=== PATIENT | male | born 1980 | race Caucasian/White ===

== ENCOUNTER 2021-09-25 14:47 | Emergency (ER) | payer OTHER ==
[2021-09-25] MEDS ORDERED: NORFLEX 100 MG100 MG PO (17:26)
[2021-09-25] MEDS ORDERED: IBUPROFEN600 MG PO (17:26)
== END 2021-09-25 18:00 | disposition home or self-care (01) ==
LOC: ER1 14:47
DX: M54.42 Lumbago with sciatica, left side (principal); E11.9 Type 2 diabetes mellitus without complications; I10 Essential (primary) hypertension; J45.909 Unspecified asthma, uncomplicated; G40.909 Epilepsy, unspecified, not intractable, without status epilepticus; F17.220 Nicotine dependence, chewing tobacco, uncomplicated
CPT/HCPCS: 72131; 96372; 99283; J1100; J1885